=== PATIENT | male | born 1970 | race Caucasian/White ===

== ENCOUNTER 2021-03-14 12:38 | Emergency (ER) | payer OTHER ==
[~2021-03-14] VITALS: Ht 175.3 cm; Wt 98.0 kg
[2021-03-14 12:50] VITALS: BP 137/82
[2021-03-14] MEDS ORDERED: DIPH,PERTUSS(ACELL),TET VAC/PF 0.5 ML SYRINGE. VAX IM ONE (13:30)
[2021-03-14] MEDS ORDERED: AMOX1TAB61 PO (13:37)
--- NOTE | 2021-03-14 13:37 | PHYS DOC ---
Past History Additional Past Medical Histor: sleep apnea, tinitus Past Surgical History: Other Additional Past Surgical Histo: rotator cuff Alcohol Use: Occasionally General Adult EDM: Chief Complaint: ANIMAL BITE HPI: HPI: 50-year-old male presents with multiple dog bites. The patient has 5 rescue dogs at home. 2 dogs got into a fight and the patient and his attempted to break it up. They were both bitten multiple times. The animals vaccinations a re all up-to-date. The patient's tetanus shot is greater than 5 years old. He has no other complaints at this time. Review of Systems: Review of Systems: Constitutional: Denies fever or chills Eyes: Denies change in visual acuity HENT: Denies nasal congestion or sore throat Respiratory: Denies cough or shortness of breath Cardiovascular: Denies chest pain or edema GI: Denies abdominal pain, nausea, vomiting, bloody stools or diarrhea : Denies dysuria Musculoskeletal: Denies back pain or joint pain Integument: Multiple dog bites of the upper extremities Neurologic: Denies headache, focal weakness or sensory changes Endocrine: Denies polyuria or polydipsia Lymphatic: Denies swollen glands Psychiatric: Denies depression or anxiety Current Medications: Current Meds: Current Medications Medications (Trade) Dose Ordered Sig/Destinee Start Time Stop Time Status Last Admin Dose Admin Diphtheria/ Pertussis/Tetanus Vacc (ADACEL TDap SYRINGE) 0.5 ml ONCE ONCE 03/14/21 13:30 03/14/21 13:31 DC Allergies: Allergies: Allergies Coded Allergies Type Severity Reaction Last Updated Verified oxycodone Allergy Unknown 03/14/21 Yes Physical Exam: PE: Constitutional: Well developed, well nourished, no acute distress, non-toxic appearance. [] HENT: Normocephalic, atraumatic, bilateral external ears normal, oropharynx moist, no oral exudates, nose normal. [] Eyes: PERRLA, EOMI, conjunctiva normal, no discharge. [] Neck: Normal range of motion, no tenderness, supple, no stridor. [] Cardiovascular:Heart rate regular rhythm, no murmur [] Lungs & Thorax: Bilateral breath sounds clear to auscultation [] Abdomen: Bowel sounds normal, soft, no tenderness, no masses, no pulsatile masses. [] Skin: Multiple puncture wounds of the bilateral arms consistent with dog bites. One 2.5 cm bite with skin tear of the right hand between digits 2 and 3. [] Back: No tenderness, no CVA tenderness. [] Extremities: No tenderness, no cyanosis, no clubbing, ROM intact, no edema. [] Neurologic: Alert and oriented X 3, normal motor function, normal sensory function, no focal deficits noted. [] Psychologic: Affect normal, judgement normal, mood normal. [] Current Patient Data: Vital Signs: Vital Signs Date Time Temp Pulse Resp B/P (MAP) Pulse Ox O2 Delivery O2 Flow Rate FiO2 03/14/21 12:50 98.1 76 16 137/82 98 EKG: EKG: [] Radiology/Procedures: Radiology/Procedures: [] Heart Score: C/O Chest Pain: N/A Risk Factors: Risk Factors: DM, Current or recent (<one month) smoker, HTN, HLP, family history of CAD, obesity. Risk Scores: Score 0 - 3: 2.5% MACE over next 6 weeks - Discharge Home Score 4 - 6: 20.3% MACE over next 6 weeks - Admit for Clinical Observation Score 7 - 10: 72.7% MACE over next 6 weeks - Early Invasive Strategies Course & Med Decision Making: Course & Med Decision Making Pertinent Labs and Imaging studies reviewed. (See chart for details) The patient has 1 tear between the second and third digit that will require loose sutures. The rest do not require sutures for acceptable healing. See note below for suture details. The patient's tetanus was updated in the emergency room. I am discharging him with 7 days of Augmentin. He is stable for discharge at this time. [] Dragon Disclaimer: Ana Luisa Disclaimer: This electronic medical record was generated, in whole or in part, using a voice recognition dictation system. Laceration Repair Lac Repair Indication: [] 2.5 cm laceration of the right hand Procedure: I obtained verbal consent from the patient for suture repair of his right hand laceration. The wound was thoroughly irrigated with normal saline and chlorhexidine wash. No foreign bodies were found. I loosely repaired the wound with 4-0 Ethilon sutures. There were 5 sutures in interrupted fashion. There was reasonable skin approximation. Bleeding was controlled. No dressing was applied. Tetanus was updated in the ED. Total repaired wound length: 2.5 cm. Other Items: None The patient tolerated the procedure well. Complications: None. Departure Departure: Impression: Primary Impression: Dog bite Qualified Codes: W54.0XXA - Bitten by dog, initial encounter Disposition: HOME / SELF CARE / HOMELESS Condition: STABLE Referrals: FÁTIMA GUSTAFSON (PCP) Patient Instructions: Animal Bite, [id number] Scripts Amoxicillin/Potassium Clav (AUGMENTIN 875-125 TABLET) 1 Each Tablet 1 TAB PO BID for dog bite for 7 Days, #14 TAB 0 Refills Prov: TAYA GAMEZ DO 03/14/21 TAYA GAMEZ DO Mar 14, 2021 13:37
== END 2021-03-14 13:35 | disposition home or self-care (01) ==
LOC: ER 12:38
DX: S61.411A Laceration without foreign body of right hand, initial encounter (principal); S41.132A Puncture wound without foreign body of left upper arm, initial encounter; S41.131A Puncture wound without foreign body of right upper arm, initial encounter; Z88.5 Allergy status to narcotic agent; W54.0XXA Bitten by dog, initial encounter; Y93.89 Activity, other specified; Y92.89 Other specified places as the place of occurrence of the external cause; Y99.8 Other external cause status
CPT/HCPCS: 12001; 90471; 90715; 99283